=== PATIENT | male | born 1975 | race Caucasian/White ===

== ENCOUNTER 2018-10-04 20:19 | Emergency (ER) | payer SELFPAY ==
[~2018-10-04] VITALS: Ht 162.6 cm; Wt 91.2 kg
[2018-10-04 20:25] VITALS: Ht 162.6 cm; Wt 91.2 kg
[2018-10-04 20:50] VITALS: BP 150/83
== END 2018-10-04 20:50 | disposition home or self-care (01) ==
LOC: ED 20:19
DX: S00.512A Abrasion of oral cavity, initial encounter (principal); K14.6 Glossodynia; W22.8XXA Striking against or struck by other objects, initial encounter; Y93.89 Activity, other specified; Y92.89 Other specified places as the place of occurrence of the external cause; Y99.8 Other external cause status